=== PATIENT | male | born 1985 | race Caucasian/White ===

== ENCOUNTER 2020-11-28 13:01 | Emergency (ER) | payer OTHER ==
[~2020-11-28] VITALS: Ht 185.4 cm; Wt 111.4 kg
[2020-11-28 13:15] VITALS: BP 145/91
[2020-11-28] MEDS ORDERED: dexamethasone sod phosphate 10mg/ml inj PO STA (13:57)
[2020-11-28] MEDS ORDERED: PENI500T2 PO (14:09)
== END 2020-11-28 14:17 | disposition home or self-care (01) ==
LOC: ER 13:01
DX: J02.0 Streptococcal pharyngitis (principal); Z91.013 Allergy to seafood; Z79.2 Long term (current) use of antibiotics
CPT/HCPCS: 99283; J1100